=== PATIENT | male | born 1965 | race Caucasian/White ===

== ENCOUNTER 2019-01-21 01:21 | Emergency (ER) | payer BC ==
[2019-01-21] MEDS ORDERED: Ketorolac 0.5% Ophth Soln 5 ML Bottle EYEBOTH ONE (01:48)
--- NOTE | 2019-01-21 01:48 | EDM.PDOC ---
ED HPI GENERAL MEDICAL PROBLEM - General Chief Complaint: Eye Problems Stated Complaint: eye pain Time Seen by Provider: 01/21/19 01:39 Source of Information: Reports: Patient, Family History Limitations: Reports: No Limitations - History of Present Illness INITIAL COMMENTS - FREE TEXT/NARRATIVE: Patient presents to the ED with severe bilateral eye pain. Excessive runny nose and he can't open his eyes at all due to the severity of the pain. He believes they may got Americo lotion in his eyes that he had put on his hands. 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 More likely that he has ultraviolet radiation quick to his corneas . Onset: Gradual Onset Date: 01/20/19 Duration: Hour(s): Location: Reports: Face (Both I's.) Quality: Reports: Burning Severity: Severe Improves with: Reports: None Worsens with: Reports: Other Context: Reports: Other (Possible chemical from Jergens lotion in his eye.). Denies: Activity, Exercise (Bright light), Lifting, Sick Contact, Trauma Associated Symptoms: Reports: Other Treatments PROFESSOR OF GRAPHIC DESIGN: Reports: Other (see below) (None.) Bilateral Eye Pain Score (Numeric/FACES): 8 - Related Data Allergies Allergy/AdvReac Type Severity Reaction Status Date / Time No Known Allergies Allergy Verified 01/21/19 01:30 Home Meds: Home Meds Aspirin [Halfprin] 325 mg PO DAILY 01/21/19 [History] Losartan [Cozaar] 100 mg PO DAILY 01/21/19 [History] amLODIPine [Norvasc] 5 mg PO DAILY 01/21/19 [History] Past Medical History - Past Health History Medical/Surgical History: Denies Medical/Surgical History HEENT History: Reports: Impaired Vision Other HEENT History: wears glasses Cardiovascular History: Reports: Hypertension, Other (See Below) Other Cardiovascular History: Pt verbalized BP elevated PRN, has not been diagnosed with HTN and doesn't take Meds Respiratory History: Reports: Other (See Below) Other Respiratory History: Hayfever - Infectious Disease History Infectious Disease History: Reports: Chicken Pox - Past Surgical History HEENT Surgical History: Reports: Tonsillectomy Cardiovascular Surgical History: Reports: None Respiratory Surgical History: Reports: None Male Surgical History: Reports: Circumcision Social & Family History - Family History Family Medical History: Noncontributory - Tobacco Use Smoking Status *Q: Never Smoker Second Hand Smoke Exposure: No - Caffeine Use Caffeine Use: Reports: Soda Caffeine Use Comment: 2 bottles of Mt Dew daily - Recreational Drug Use Recreational Drug Use: No - Living Situation & Occupation Living situation: Reports: Occupation: Employed ED ROS GENERAL - Review of Systems Review Of Systems: See Below Constitutional: Reports: No Symptoms HEENT: Reports: Eye Pain (Bilateral and severe). Denies: Contact Lenses, Dental Pain, Ear Discharge, Ear Pain, Glasses, Hearing Loss, Nosebleed, Nose Pain, Rhinitis, Sinus Problem, Throat Swelling Respiratory: Reports: No Symptoms Cardiovascular: Reports: Blood Pressure Problem Endocrine: Reports: No Symptoms GI/Abdominal: Reports: No Symptoms : Reports: No Symptoms Musculoskeletal: Reports: No Symptoms Skin: Reports: No Symptoms Neurological: Reports: No Symptoms Psychiatric: Reports: No Symptoms Hematologic/Lymphatic: Reports: No Symptoms Immunologic: Reports: No Symptoms ED EXAM GENERAL W FULL EYE - Physical Exam Exam: See Below Exam Limited By: No Limitations General Appearance: Alert, WD/WN, Moderate Distress, Other (Cannot open his eyes with the ) Eye Exam: Bilateral Eye: Corneal Abrasion (Eating of the corneas bilaterally from welder assistant's flash burn.), Other (Patient got relief of the pain with topical proparacaine eyedrops otherwise he couldn't open his eyes. Did allow examination with the slit lamp which confirmed bilateral pitting of the cornea slightly worse on the right as compared to the left due to ultraviolet radiation quick from welding flash.) Eyelids: Bilateral: Normal Appearance Conjunctiva & Sclera: Bilateral: Normal Appearance Cornea Exam: Bilateral: Corneal Abrasion (Bilateral pitting of the corneas inferiorly and centrally worse in the right as compared to the left on slit lamp exam) Extraocular Movements: Bilateral: Intact Pupillary Size: Bilateral: 5 mm Pupillary Reaction: Bilateral: Brisk Anterior Chamber: Bilateral: Normal Appearance Course - Vital Signs Last Recorded V/S: Last Vital Signs Temp 36.7 C 01/21/19 01:29 Pulse 73 01/21/19 01:29 Resp 20 01/21/19 01:29 BP 164/102 H 01/21/19 01:29 Pulse Ox 100 01/21/19 01:29 - Orders/Labs/Meds Meds: Medications Discontinued Medications Generic Name Dose Route Start Last Admin Trade Name Leigha PRShawn Reason Stop Dose Admin Ciprofloxacin 2.5 ml 01/21/19 01:55 Ciloxan 0.3% Ophth Soln EYEBOTH 01/21/19 01:56 ONETIME ONE Diphenhydramine HCl 50 mg 01/21/19 01:50 01/21/19 01:57 Benadryl PO 01/21/19 01:51 50 mg ONETIME ONE Administration Diphenhydramine HCl Confirm 01/21/19 01:53 01/21/19 01:59 Benadryl Administered 01/21/19 01:54 Not Given Dose 50 mg .ROUTE .STK-MED ONE Ketorolac Tromethamine 2.5 ml 01/21/19 01:48 01/21/19 01:57 Acular 0.5% Ophth Soln EYEBOTH 01/21/19 01:49 2 drop ONETIME ONE Administration Ondansetron HCl 4 mg 01/21/19 01:51 01/21/19 01:57 Zofran Odt PO 01/21/19 01:52 4 mg ONETIME ONE Administration Oxycodone/Acetaminophen 2 tab 01/21/19 01:51 01/21/19 01:57 Percocet 325-5 Mg PO 01/21/19 01:52 2 tab ONETIME ONE Administration - Radiology Interpretation Free Text/Narrative:: 53-year-old male presents to the ED with bilateral severe eye pain. Claims that they have burning severely and have been so since about 10:30 last evening. 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 He felt however that. Use Americo hand lotion on his hands before bed and that he may have rubbed his eyes and got lotion into his eyes to cause his pain. He is in severe pain and intolerant to light. This suggests ultraviolet radiation quick to his corneas. He did respond with complete pain relief to topical proparacaine. Unable to examine the corneas with the slit lamp and confirm some pitting centrally and inferiorly of both eyes right slightly worse on the left compatible with ultraviolet radiation burn. Aid with topical Toradol for ketorolac drops 2 drops to each eye now and then 5 minutes later 2 drops of Cipro ophthalmic drops were placed. He will take these drops home with him. He continues ketorolac 2 drops every 6 hours for the next 24 hours. Antibiotic is to be used 1 drop to each eye 3 times daily for 2 days to prevent secondary infection. I also gave him Benadryl 50 mg by mouth and 2 Percocet 5/325 mg tablets for pain relief and to allow sedation so that he can sleep and not blink through the remainder the night to allow his corneas to heal. In 24-36 hours if not completely back to normal. He is off work today. Departure - Departure Time of Disposition: 02:11 Disposition: Home, Self-Care 01 Condition: Fair Clinical Impression: Welders' flash Qualifiers: Laterality: bilateral Qualified Code(s): H16.133 - Photokeratitis, bilateral - Discharge Information *PRESCRIPTION DRUG MONITORING PROGRAM REVIEWED*: Not Applicable *COPY OF PRESCRIPTION DRUG MONITORING REPORT IN PATIENT ARBEN: Not Applicable Instructions: Ultraviolet Keratitis, [id number], How to Use Eye Drops and Eye Ointments Referrals: PCP,None [Primary Care Provider] - Forms: ED Department Discharge Additional Instructions: Evaluation the emergency room tonight in regards to bilateral severe eye burning pain worsened by exposure to light. Pain started about 10:30 last night and progressively worsened. 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 Pain went away with topical proparacaine or anesthetic. This allowed me to look at the corneas well with a slitlamp and he does reveal mild pitting of the corneas from ultraviolet radiation quick from welding. Is better known as welder assistant's flash burn. Often takes 6-12 hours to develop after exposure. Event in the ED was topical proparacaine to alleviate the severe pain. We cannot use this continuously as it will not allow the corneas to heal. Treatment is ketorolac eyedrops 2 drops to each eye every 6 hours as needed for usually 24 hours to alleviate pain. Cipro op thalamic drops aren't antibiotic to be taken one drop to each eye every 8 hours for 2 days to prevent any secondary infections. Also given Benadryl 50 mg with 2 Percocet tablets in the ED to relieve pain and allow him to sleep for hopefully 8 hours or so to allow the corneas to heal. Corneas will heal usually pretty close to normal within 18-24 hours. They are still bothering you in the morning, patch each eye closed after putting in the drops and retest in 6 hours. If not completely back to normal in 24-36 hours you need to be seen again. Sepsis Event Note - Evaluation Sepsis Screening Result: No Definite Risk - Focused Exam Vital Signs: Vital Signs Temp Pulse Resp BP Pulse Ox 01/21/19 01:29 36.7 C 73 20 164/102 H 100 Date Exam was Performed: 01/21/19 Time Exam was Performed: 02:06
[2019-01-21] MEDS ORDERED: diphenhydrAMINE 50 MG Cap PO ONE (01:50)
[2019-01-21] MEDS ORDERED: Ondansetron 4 MG Tab.DIS PO ONE (01:51)
[2019-01-21] MEDS ORDERED: Acetaminophen/oxyCODONE 325-5 MG Tab PO ONE (01:51)
[2019-01-21] MEDS ORDERED: diphenhydrAMINE 25 MG Cap ONE (01:53)
[2019-01-21] MEDS ORDERED: Ciprofloxacin 0.3% Ophth Soln 5 ML Bottle EYEBOTH ONE (01:55)
== END 2019-01-21 02:12 | disposition home or self-care (01) ==
LOC: JD.ED 01:21
DX: H16.133 Photokeratitis, bilateral (principal)
CPT/HCPCS: 99283; A9270

== ENCOUNTER 2023-03-23 10:19 | Emergency (ER) | payer BC ==
[2023-03-23 10:47] LABS: BASOPHILS PERCENT AUTO 0.4 % (0.0-1.0); EOSINOPHILS ABSOLUTE AUTO 0.2 K/mm3 (0.0-0.4); EOSINOPHILS PERCENT AUTO 2.3 % (0.0-6.0); HEMOGLOBIN 15.7 gm/dl (14.0-18.0); IMMATURE GRAN ABSOLUTE AUTO 0.02 K/mm3 (0.00-0.05); IMMATURE GRAN PERCENT AUTO 0.3 % (0.0-0.4); LYMPHOCYTES ABSOLUTE AUTO 2.4 K/mm3 (1.0-4.8); LYMPHOCYTES PERCENT AUTO 34.6 % (24.0-44.0); MEAN CORPUSCULAR HEMOGLOBIN 29.8 pg (28.0-32.0); MEAN CORPUSCULAR HGB CONC 34.9 g/dl (32.0-36.0); MEAN CORPUSCULAR VOLUME 85.6 fl (83.0-99.0); MEAN PLATELET VOLUME 8.3 fl (9.4-12.4); MONOCYTES ABSOLUTE AUTO 0.5 K/mm3 (0.0-0.8); MONOCYTES PERCENT AUTO 7.7 % (0.0-8.0); NEUTROPHILS ABSOLUTE AUTO 3.8 K/mm3 (1.8-7.7); NEUTROPHILS PERCENT AUTO 54.7 % (41.0-71.0); PLATELET COUNT,PLT 297 K/mm3 (150-400); RED BLOOD CELL COUNT 5.26 M/mm3 (4.52-5.90); WHITE BLOOD CELL COUNT,WBC 6.99 K/mm3 (3.9-11.3)
[2023-03-23] MEDS: Sodium Chloride 0.9% 10 ML Syringe FLUSH PRN (11:07)
[2023-03-23 11:12] LABS: A/G RATIO 1.1 (1-2); ALBUMIN 4.1 g/dl (3.4-5.0); ANION GAP 13.9 (5-15); BILIRUBIN TOTAL 0.4 mg/dL (0.2-1.0); BUN/CREATININE RATIO 15.6 (14-18); CALCIUM 9.8 mg/dL (8.5-10.1); CREATININE 0.9 mg/dL (0.7-1.3); EST CRCL DRUG DOSING (CG) 91.25 mL/min; MAGNESIUM 1.8 mg/dL (1.8-2.4); POTASSIUM,K 3.9 mEq/L (3.5-5.1)
== END 2023-03-23 12:40 | disposition home or self-care (01) ==
LOC: JD.ED 10:19
DX: R07.89 Other chest pain (principal); I10 Essential (primary) hypertension; E78.00 Pure hypercholesterolemia, unspecified; Z79.82 Long term (current) use of aspirin; Z79.899 Other long term (current) drug therapy
CPT/HCPCS: 36415; 71045; 80053; 83735; 84484; 85025; 85379; 93005; 99285; J3490